=== PATIENT | male | born 1950 | race Caucasian/White ===

== ENCOUNTER 2017-06-30 09:15 | Inpatient (IN) | payer OTHER ==
[~2017-06-30] VITALS: Ht 167.6 cm; Wt 77.1 kg
[~2017-06-30 09:15] MED LIST: CATAFLAN PO; CLONAZEPAM2 MG PO; COQ-1030 MG PO; COZAAR50 MG PO; FINASTERIDE5 MG PO; METFORMIN HCL500 MG PO; OMEGA 3 500 SO1 EACH PO; TAMS0.4C PO; VERAPAMIL ER240 MG PO; [UNRECOGNIZED DRUG - OTHER] PO
[2017-06-30] MEDS ORDERED: [UNRECOGNIZED DRUG - SUPPLY] (10:13)
[2017-06-30] MEDS ORDERED: PAIN RELIEVER500 MG PO (10:14)
[2017-07-03] MEDS ORDERED: CLONAZEPAM1 MG PO (16:24)
[2017-07-03] MEDS ORDERED: PERCOCET 5-3251 EACH PO (16:24)
[2017-07-03] MEDS ORDERED: DOCUSATE SODIU100 MG PO (16:24)
== END 2017-07-03 18:13 | disposition home or self-care (01) | DRG 454 ==
LOC: O/R 07-02 04:45 → SURH 07-02 04:45 → SURG 07-02 09:15 → SURH 07-02 12:53
PROVIDERS: Orthopaedic Surgery Orthopaedic Surgery of the Spine
PROC: 0RG20A0 Fusion of 2 or more Cervical Vertebral Joints with Interbody Fusion Device, Anterior Approach, Anterior Column, Open Approach (ICD-10-PCS; 2017-07-02)
PROC: 0RG20K1 Fusion of 2 or more Cervical Vertebral Joints with Nonautologous Tissue Substitute, Posterior Approach, Posterior Column, Open Approach (ICD-10-PCS; 2017-07-02)
PROC: 0RT30ZZ Resection of Cervical Vertebral Disc, Open Approach (ICD-10-PCS; principal; 2017-07-02 10:30)
DX: M50.021 Cervical disc disorder at C4-C5 level with myelopathy (principal); M47.12 Other spondylosis with myelopathy, cervical region; I10 Essential (primary) hypertension; E11.9 Type 2 diabetes mellitus without complications

== ENCOUNTER → 2017-07-04 | Emergency (ER) | payer OTHER ==
[~2017-07-04] VITALS: Ht 167.6 cm; Wt 75.3 kg
[~2017-07-04] MED LIST changes: +CLONAZEPAM1 MG PO; +DOCUSATE SODIU100 MG PO; +PAIN RELIEVER500 MG PO; +PERCOCET 5-3251 EACH PO; +[UNRECOGNIZED DRUG - SUPPLY]
== END | disposition designated cancer center or children's hospital (05) ==
LOC: ER 20:01 → CPU-OBS 20:06 → ER 20:06
DX: I21.19 ST elevation (STEMI) myocardial infarction involving other coronary artery of inferior wall (principal); R07.89 Other chest pain